=== PATIENT | male | born 1980 | race Caucasian/White ===

== ENCOUNTER → 2019-05-20 14:24 | Outpatient (CLI) | payer MEDICAID, SELFPAY ==
[2019-05-20 17:44] LABS: Basophil# 0.02 X10^3/uL; Basophil% 0.2 % (0-1); Eosinophil# 0.06 X10^3/uL; Eosinophils% 0.7 % (0-5); Hematocrit 46.7 % (40-54); Lymphocyte % 30.5 % (19-41); Mean Corp Hgb Conc 34.3 g/gl (32-36); Mean Corpuscular Hgb 30.7 pg (27.0-32.0); Mean Corpuscular Volume 89.5 fL (80-94); Mean Platelet Vol. 11.8 fl (6.2-12.0); Monocyte% 7.3 % (0-10); Neutrophil # 5.01 X10^3/uL (2.7-7.7); Neutrophil % 61.2 % (47-70); Platelet Count 248 K/mm3 (150-450); RBC Distribution Width CV 12.7 % (11.6-14.6); RBC Distribution Width SD 41.5 fl (35.1-43.9); Red Blood Count 5.22 M/mm3 (4.6-6.2); White Blood Count 8.2 K/mm3 (4.4-11.0)
[2019-05-20 17:45] LABS: POSITIVE COUNT NO; POSITIVE DIFFERENTIAL NO; POSITIVE MORPHOLOGY NO
[2019-05-20 17:56] LABS: T3 Total - Triiodothyronine 1.02 ng/mL (0.6-1.81)
[2019-05-20 18:01] LABS: Albumin, Serum 4.2 g/dL (3.2-5.0); BUN 9 mg/dL (7-18); BUN/Creat Ratio 11.7 RATIO (10-20); Creatinine, Serum 0.77 mg/dL (0.70-1.30); EST Glomerular Filtration Rate 120 mL/min (>60); Est Glom Filt Rate - Afr Amer 145 mL/min (>60); Globulin 3.5 g/dL (2.2-4.2); Glucose 81 mg/dL (74-106); Protein, Total 7.7 g/dL (6.4-8.2)
[2019-05-20 18:02] LABS: ALB/GLOB Ratio 1.2 RATIO (0.9-2.4); AST(SGOT) 26 U/L (15-37); Alanine Aminotransfer ALT/SGPT 23 U/L (16-61); Alkaline Phosphatase 75 U/L (45-117); Anion Gap 9 (5-15); Calcium,Total 9.1 mg/dL (8.5-10.1); Chloride 106 mmol/L (98-107); Potassium 4.2 mmol/L (3.5-5.1); Sodium Level 140 mmol/L (136-145); T4 Free Direct 1.16 ng/dL (0.76-1.46); Thyroid Stim Hormone (TSH) 2.07 uIU/mL (0.358-3.74)
[2019-05-22 08:03] LABS: Thyroid Peroxidase AB 23 IU/mL (0-34)
== END ==
PROVIDERS: Referring Provider Dermatology Pediatric Dermatology; Visit Provider Dermatology Pediatric Dermatology
DX: E03.8 Other specified hypothyroidism (principal); L63.8 Other alopecia areata
CPT/HCPCS: 36415; 80053; 84439; 84443; 84480; 85025; 86038; 86376